=== PATIENT | female | born 1990 | race Caucasian/White ===

== ENCOUNTER 2017-11-04 16:37 | Emergency (ER) | payer SELFPAY ==
[~2017-11-04] VITALS: Ht 170.2 cm; Wt 58.1 kg
[2017-11-04 16:42] VITALS: BP 139/77
[2017-11-04] MEDS ORDERED: MORPHINE SULFATE INJ 2 MG/ML DISP.SYRIN IM ONE (17:30)
[2017-11-04] MEDS ORDERED: ONDANSETRON 4 MG TAB.RAPDIS SL ONE (17:30)
[2017-11-04] MEDS ORDERED: ONDANSETRON 4 MG TAB.RAPDIS ONE (17:52)
[2017-11-04] MEDS ORDERED: MORPHINE SULFATE INJ 4 MG/ML DISP.SYRIN ONE (17:52)
--- NOTE | 2017-11-04 18:05 | NUR ---
PT TAKEN TO CT
== END 2017-11-04 19:35 | disposition home or self-care (01) ==
LOC: ER 16:38
DX: S39.012A Strain of muscle, fascia and tendon of lower back, initial encounter (principal); S80.02XA Contusion of left knee, initial encounter; S80.01XA Contusion of right knee, initial encounter; S40.012A Contusion of left shoulder, initial encounter; S19.80XA Other specified injuries of unspecified part of neck, initial encounter; F12.10 Cannabis abuse, uncomplicated; V49.49XA Driver injured in collision with other motor vehicles in traffic accident, initial encounter; Y93.89 Activity, other specified; Y92.413 State road as the place of occurrence of the external cause; Y99.8 Other external cause status
CPT/HCPCS: 72040-TC; 72170-TC; A4606; J2270; Q0162; Z7610

== ENCOUNTER 2017-11-08 13:33 | Emergency (ER) | payer SELFPAY ==
[~2017-11-08] VITALS: Ht 170.2 cm; Wt 54.4 kg
[2017-11-08 13:43] VITALS: BP 105/61
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
--- NOTE | 2017-11-08 14:10 | NUR ---
PT BROUGHT TO CT SCAN
--- NOTE | 2017-11-08 14:15 | NUR ---
PT SIGNED WAIVER FOR CT SCAN AND MD SETH TO GIVE TORADOL IM.
[2017-11-08] MEDS ORDERED: HYDROCODONE/APAP 5/325MG 1 EACH TABLET ONE (14:28)
[2017-11-08] MEDS ORDERED: KETOROLAC TROMETHAMINE INJ 30 MG/ML VIAL ONE (14:28)
[2017-11-08] MEDS ORDERED: KETOROLAC TROMETHAMINE INJ 60 MG/2 ML VIAL IM ONE (14:30)
[2017-11-08] MEDS ORDERED: HYDROCODONE/APAP 5/325MG 1 EACH TABLET PO ONE (14:30)
[2017-11-08] MEDS ORDERED: ONDANSETRON 4 MG TAB.RAPDIS ONE ×2 (14:39→14:43)
[2017-11-08] MEDS ORDERED: ONDANSETRON 4 MG TAB.RAPDIS SL ONE (15:00)
== END 2017-11-08 15:00 | disposition home or self-care (01) ==
LOC: ER 13:42
DX: S16.1XXD Strain of muscle, fascia and tendon at neck level, subsequent encounter (principal); S43.52XD Sprain of left acromioclavicular joint, subsequent encounter; S80.12XD Contusion of left lower leg, subsequent encounter; Z88.0 Allergy status to penicillin; V89.2XXD Person injured in unspecified motor-vehicle accident, traffic, subsequent encounter
CPT/HCPCS: 72125-TC; A4606; J1885; Q0162; Z7610

== ENCOUNTER 2019-05-02 13:53 | Emergency (ER) | payer OTHER ==
[~2019-05-02] VITALS: Ht 170.2 cm; Wt 62.6 kg
[2019-05-02] MEDS ORDERED: KETOROLAC TROMETHAMINE INJ 30 MG/ML VIAL ONE (15:03)
--- NOTE | 2019-05-02 15:05 | NUR ---
PATIENT SIGNED WAIVER FORM, LMP 04/13/19, PATIENT STATED "I'M PUENTE"
[2019-05-02] MEDS: KETOROLAC TROMETHAMINE INJ 60 MG/2 ML VIAL IM ONE (15:09)
[2019-05-02 15:12] VITALS: BP 112/71
== END 2019-05-02 15:14 | disposition home or self-care (01) ==
LOC: ER 13:54
DX: J06.9 Acute upper respiratory infection, unspecified (principal); J32.9 Chronic sinusitis, unspecified; Z88.0 Allergy status to penicillin
CPT/HCPCS: 96372; 99283; J1885